=== PATIENT | female | born 1975 | race Hispanic/Latino ===

== ENCOUNTER 2022-12-19 07:22 | Inpatient (IN) | payer BC ==
[2022-12-19] VITALS (14 sets, daily range): BP systolic 107–139; BP diastolic 54–75
[~2022-12-19] VITALS: Ht 165.1 cm; Wt 117.9 kg
[2022-12-19 07:54] LABS: MEAN CORPUSCULAR HEMOGLOBIN 23.3 pg (27.0-33.0); MEAN CORPUSCULAR HGB CONC 29.6 g/dL (32.0-36.0); MEAN CORPUSCULAR VOLUME 78.6 fL (79-99); NUCLEATED RED BLOOD CELLS 0.6 % (0.0-0.19); PLATELET COUNT (AUTO) 338 K/uL (130-400); RED BLOOD CELL COUNT(AUTO) 2.15 MIL/uL (4.00-5.50); RED CELL DISTRIBUTION WIDTH 16.7 % (11.0-15.5); WHITE BLOOD COUNT (AUTO) 22.7 K/uL (4.8-10.8)
[2022-12-19 08:04] LABS: HEMATOCRIT 16.9 % (36-48)
[2022-12-19 08:07] LABS: ALBUMIN 2.9 g/dL (3.5-5.0); CREATININE 0.8 mg/dL (0.5-1.5); POTASSIUM 3.5 mmol/L (3.5-5.1); TOTAL PROTEIN, SERUM 6.4 g/dL (6.0-8.3)
[2022-12-19 08:56] LABS: BASOPHILS % (AUTO) 0.3 % (0.0-5.0); EOSINOPHILS % (AUTO) 3.8 % (0.0-8.0); LYMPHOCYTES % (AUTO) 15.8 % (21.0-51.0); MEAN CORPUSCULAR HEMOGLOBIN 23.4 pg (27.0-33.0); MEAN CORPUSCULAR HGB CONC 30.2 g/dL (32.0-36.0); MEAN CORPUSCULAR VOLUME 77.5 fL (79-99); MONOCYTES % (AUTO) 5.5 % (3.0-13.0); NEUTROPHILS % (AUTO) 71.9 % (40.0-77.0); NUCLEATED RED BLOOD CELLS 0.6 % (0.0-0.19); PLATELET COUNT (AUTO) 299 K/uL (130-400); RED BLOOD CELL COUNT(AUTO) 2.09 MIL/uL (4.00-5.50); RED CELL DISTRIBUTION WIDTH 16.7 % (11.0-15.5)
[2022-12-19 08:59] LABS: HEMATOCRIT 16.2 % (36-48)
[2022-12-19] MEDS ORDERED: ONDANSETRON 4MG INJ IVP PRN (10:00)
[2022-12-19] MEDS ORDERED: ACETAMINOPHEN WITH CODEINE 1 TAB TAB PO PRN (10:00)
[2022-12-19] MEDS ORDERED: NORG1TAB75 PO (10:44)
[2022-12-19 10:47] LABS: APPEARANCE,URINE CLEAR (CLEAR); BILIRUBIN,URINE NEGATIVE (NEGATIVE); COLOR,URINE LIGHT-YELLOW (YELLOW); GLUCOSE, URINE (UA) NEGATIVE (NEGATIVE); KETONES,URINE NEGATIVE (NEGATIVE); LEUKOCYTE ESTERASE ,URINE NEGATIVE Leu/uL (NEGATIVE); NITRATE,URINE NEGATIVE (NEGATIVE); OCCULT BLOOD,URINE MODERATE (NEGATIVE); PROTEIN,URINE NEGATIVE (NEGATIVE); UROBILINOGEN,URINE 0.2 mg/dL (0.2-1.0)
[2022-12-19] MEDS ORDERED: ERGO500093 PO (10:47)
[2022-12-19] MEDS ORDERED: FERS325 PO (10:49)
[2022-12-19 10:50] LABS: HCG,QUALITATIVE URINE NEGATIVE (NEGATIVE)
[2022-12-19] MEDS ORDERED: AMLO-343 PO (10:51)
[2022-12-19] MEDS: 0.9%NACL 1000ML 1,000 ML IV SCH (11:06)
[2022-12-19 11:40] LABS: MUCUS,URINE RARE LPF (None Seen); RBC,URINE 0-1 /HPF (0-1); SQUAMOUS EPITHELIAL CELL,UR FEW /HPF (0-2); WBC,URINE 0-1 /HPF (0-1)
[2022-12-19 23:26] LABS: HEMATOCRIT 24.4 % (36-48)
[2022-12-20 02:14] VITALS: BP 106/57
[2022-12-20] MEDS: LACTATED RINGERS 1000ML 1,000 ML IV SCH ×2 (03:13→08:08)
[2022-12-20] MEDS: 0.9%NACL 1000ML 1,000 ML IV SCH (05:51)
[2022-12-20 07:40] VITALS: BP 118/70
[2022-12-20 10:11] LABS: HEMATOCRIT 27.1 % (36-48); MEAN CORPUSCULAR HEMOGLOBIN 26.2 pg (27.0-33.0); MEAN CORPUSCULAR HGB CONC 31.7 g/dL (32.0-36.0); MEAN CORPUSCULAR VOLUME 82.6 fL (79-99); NUCLEATED RED BLOOD CELLS 0.6 % (0.0-0.19); RED BLOOD CELL COUNT(AUTO) 3.28 MIL/uL (4.00-5.50); RED CELL DISTRIBUTION WIDTH 17.1 % (11.0-15.5); WHITE BLOOD COUNT (AUTO) 15.4 K/uL (4.8-10.8)
[2022-12-20 12:33] VITALS: BP 142/58
== END 2022-12-20 15:40 | disposition home or self-care (01) | DRG 760 ==
LOC: EDH 07:22 → EDHIP 09:38 → WSH 10:00
PROVIDERS: ADMIT Obstetrics & Gynecology; ATTEND Obstetrics & Gynecology
PROC: 30233N1 Transfusion of Nonautologous Red Blood Cells into Peripheral Vein, Percutaneous Approach (ICD-10-PCS; principal; 2022-12-19)
DX: N93.8 Other specified abnormal uterine and vaginal bleeding (principal); D62 Acute posthemorrhagic anemia; N99.820 Postprocedural hemorrhage of a genitourinary system organ or structure following a genitourinary system procedure; I10 Essential (primary) hypertension
CPT/HCPCS: 36415; 36430; 76856; 80053; 81001; 81025; 85014; 85018; 85025; 85027; 85060; 86850; 86900; 86901; 86923; 93005; 99291; G0378; J2405; P9016

== ENCOUNTER 2022-12-28 11:40 | Emergency (ER) | payer BC ==
[~2022-12-28] VITALS: Ht 165.1 cm; Wt 117.9 kg
[~2022-12-28 11:40] MED LIST: AMLO-343 PO; ERGO500093 PO; FERS325 PO
[2022-12-28 12:36] LABS: BASOPHILS % (AUTO) 0.3 % (0.0-5.0); EOSINOPHILS % (AUTO) 2.7 % (0.0-8.0); HEMATOCRIT 30.1 % (36-48); LYMPHOCYTES % (AUTO) 14.6 % (21.0-51.0); MEAN CORPUSCULAR HEMOGLOBIN 26.7 pg (27.0-33.0); MEAN CORPUSCULAR HGB CONC 30.6 g/dL (32.0-36.0); MEAN CORPUSCULAR VOLUME 87.2 fL (79-99); MONOCYTES % (AUTO) 5.1 % (3.0-13.0); NEUTROPHILS % (AUTO) 76.5 % (40.0-77.0); PLATELET COUNT (AUTO) 338 K/uL (130-400); RED BLOOD CELL COUNT(AUTO) 3.45 MIL/uL (4.00-5.50); RED CELL DISTRIBUTION WIDTH 17.2 % (11.0-15.5); WHITE BLOOD COUNT (AUTO) 10.9 K/uL (4.8-10.8)
[2022-12-28 12:41] LABS: APPEARANCE,URINE CLOUDY (CLEAR); BILIRUBIN,URINE NEGATIVE (NEGATIVE); COLOR,URINE LIGHT-ORANGE (YELLOW); GLUCOSE, URINE (UA) NEGATIVE (NEGATIVE); KETONES,URINE NEGATIVE (NEGATIVE); LEUKOCYTE ESTERASE ,URINE 25 Leu/uL (NEGATIVE); NITRATE,URINE NEGATIVE (NEGATIVE); OCCULT BLOOD,URINE LARGE (NEGATIVE); PH,URINE 6.5 (5.0-8.0); PROTEIN,URINE 30 mg/dL (NEGATIVE); UROBILINOGEN,URINE 0.2 mg/dL (0.2-1.0)
[2022-12-28 12:52] LABS: CREATININE 0.8 mg/dL (0.5-1.5); POTASSIUM 3.7 mmol/L (3.5-5.1)
[2022-12-28 13:00] VITALS: BP 149/80
[2022-12-28 13:02] LABS: TOTAL PROTEIN, SERUM 7.1 g/dL (6.0-8.3)
[2022-12-28 14:02] LABS: BACTERIA,URINE Few /HPF (None Seen); RBC,URINE 51-100 /HPF (0-1)
== END 2022-12-28 13:09 | disposition home or self-care (01) ==
LOC: EDH 11:40
DX: N93.8 Other specified abnormal uterine and vaginal bleeding (principal); D64.9 Anemia, unspecified; I10 Essential (primary) hypertension; Z79.899 Other long term (current) drug therapy
CPT/HCPCS: 36415; 80053; 81001; 84702; 85025

== ENCOUNTER 2023-01-04 17:50 | Emergency (ER) | payer BC ==
[~2023-01-04] VITALS: Ht 165.1 cm; Wt 117.9 kg
[2023-01-04 18:42] LABS: BASOPHILS % (AUTO) 0.5 % (0.0-5.0); EOSINOPHILS % (AUTO) 2.8 % (0.0-8.0); HEMATOCRIT 23.7 % (36-48); MEAN CORPUSCULAR HEMOGLOBIN 26.4 pg (27.0-33.0); MEAN CORPUSCULAR VOLUME 88.1 fL (79-99); NEUTROPHILS % (AUTO) 67.2 % (40.0-77.0); PLATELET COUNT (AUTO) 365 K/uL (130-400); RED BLOOD CELL COUNT(AUTO) 2.69 MIL/uL (4.00-5.50); RED CELL DISTRIBUTION WIDTH 15.7 % (11.0-15.5)
[2023-01-04 18:50] LABS: APPEARANCE,URINE CLOUDY (CLEAR); BILIRUBIN,URINE NEGATIVE (NEGATIVE); COLOR,URINE LIGHT-ORANGE (YELLOW); GLUCOSE, URINE (UA) NEGATIVE (NEGATIVE); KETONES,URINE NEGATIVE (NEGATIVE); LEUKOCYTE ESTERASE ,URINE 75 Leu/uL (NEGATIVE); NITRATE,URINE NEGATIVE (NEGATIVE); OCCULT BLOOD,URINE LARGE (NEGATIVE); PROTEIN,URINE 20 mg/dL (NEGATIVE); UROBILINOGEN,URINE 0.2 mg/dL (0.2-1.0)
[2023-01-04 19:01] LABS: HCG,QUALITATIVE URINE NEGATIVE (NEGATIVE)
[2023-01-04 19:08] LABS: MUCUS,URINE RARE LPF (None Seen); RBC,URINE >100 /HPF (0-1); SQUAMOUS EPITHELIAL CELL,UR RARE /HPF (0-2); WBC,URINE 51-100 /HPF (0-1)
[2023-01-04 19:09] LABS: TOTAL PROTEIN, SERUM 6.7 g/dL (6.0-8.3)
[2023-01-04] MEDS ORDERED: CEFTRIAXONE 1G VIAL IM ONE (20:30)
[2023-01-05 01:14] LABS: HEMATOCRIT 27.6 % (36-48); MEAN CORPUSCULAR HEMOGLOBIN 26.5 pg (27.0-33.0); MEAN CORPUSCULAR HGB CONC 29.7 g/dL (32.0-36.0); RED BLOOD CELL COUNT(AUTO) 3.1 MIL/uL (4.00-5.50); RED CELL DISTRIBUTION WIDTH 15.1 % (11.0-15.5); WHITE BLOOD COUNT (AUTO) 13.7 K/uL (4.8-10.8)
[2023-01-05] MEDS ORDERED: CEPH500B PO (01:27)
[2023-01-05 01:36] VITALS: BP 112/70
== END 2023-01-05 01:49 | disposition home or self-care (01) ==
LOC: EDH 17:50
DX: N92.1 Excessive and frequent menstruation with irregular cycle (principal); N30.91 Cystitis, unspecified with hematuria; D62 Acute posthemorrhagic anemia; I10 Essential (primary) hypertension; Z79.899 Other long term (current) drug therapy
CPT/HCPCS: 99285; 36430; 80053; 85025; 86850; 86900; 86901; 86923; 87088; 81001; 81025; 36415 ×2; 96372; 93005; 85027; P9016; J0696